=== PATIENT | male | born 1980 | race African-American/Black ===

== ENCOUNTER 2020-06-10 15:34 | Emergency (ER) | payer OTHER ==
[2020-06-10] MEDS ORDERED: ONDANSETRON HCL INJ/PF 4 MG/2 ML SDV IV ONE (16:02)
[2020-06-10] MEDS ORDERED: MAG HYDROX/AL HYDROX/SIMETH SUSP 30 ML UDCUP PO ONE (16:02)
[2020-06-10] MEDS ORDERED: LIDOCAINE 2% VISCOUS SOLN 15 ML UDCUP PO ONE (16:02)
[2020-06-10] MEDS ORDERED: NORMAL SALINE 1000 ML 1,000 ML IV ONE (16:02)
--- NOTE | 2020-06-10 16:04 | ER Document Report ---
ED Medical Screen (RME) - General Chief Complaint: Vomiting Stated Complaint: HEARTBURN,VOMITING Time Seen by Provider: 06/10/20 15:58 Mode of Arrival: Ambulatory Information source: Patient Notes: Patient presents complaining of nausea vomiting for the past 6 days with epigastric discomfort. Patient denies any fever or diarrhea. Patient denies any cough or cold symptoms. Patient was acknowledged to heavy drinking recently. Patient does report a history of diabetes I have greeted and performed a rapid initial assessment of this patient. A comprehensive ED assessment and evaluation of the patient, analysis of test results and completion of the medical decision making process will be conducted by additional ED providers. Physical Exam - Vital signs Vitals: Temp Pulse Resp BP Pulse Ox 98.2 F 118 H 16 101/84 97 06/10/20 15:54 06/10/20 15:54 06/10/20 15:54 06/10/20 15:54 06/10/20 15:54 - Respiratory Respiratory status: No respiratory distress Breath sounds: Normal - Cardiovascular Rhythm: Tachycardia Heart sounds: S1 appreciated, S2 appreciated - Abdominal Tenderness: Tender - Gastric Course - Vital Signs Vital signs: Temp Pulse Resp BP Pulse Ox 98.2 F 118 H 16 101/84 97 06/10/20 15:54 06/10/20 15:54 06/10/20 15:54 06/10/20 15:54 06/10/20 15:54
[2020-06-10 16:31] LABS: ABSOLUTE LYMPHOCYTES (AUTO) 1.7 10^3/uL (0.5-4.7); ABSOLUTE MONOCYTES (AUTO) 0.9 10^3/uL (0.1-1.4); ABSOLUTE NEUT (AUTO) 11.5 10^3/uL (1.7-8.2); BASOPHILS % (AUTO) 0.2 % (0-2); EOSINOPHILS % (AUTO) 0.3 % (0-6); HEMATOCRIT 48.4 % (37.9-51.0); LYMPHOCYTES % (AUTO) 11.8 % (13-45); MEAN CORPUSCULAR HEMOGLOBIN 31.5 pg (27.0-33.4); MEAN CORPUSCULAR HGB CONC 35.2 g/dL (32.0-36.0); MEAN CORPUSCULAR VOLUME 90 fl (80-97); MONOCYTES % (AUTO) 6.7 % (3-13); PLATELET COUNT 242 10^3/uL (150-450); RED BLOOD COUNT 5.39 10^6/uL (4.35-5.55); RED CELL DISTRIBUTION WIDTH 13.3 % (11.5-14.0); TOTAL CELLS COUNTED % (AUTO) 100 %; WHITE BLOOD COUNT 14.2 10^3/uL (4.0-10.5)
[2020-06-10 16:49] LABS: ALKALINE PHOSPHATASE 65 U/L (38-126); ANION GAP 8 (5-19); ASPARTATE AMINO TRANSFERASE 24 U/L (17-59); BILIRUBIN,DIRECT 0.2 mg/dL (0.0-0.4); BILIRUBIN,TOTAL 1.1 mg/dL (0.2-1.3); BLOOD UREA NITROGEN 16 mg/dL (7-20); CALCIUM 9.2 mg/dL (8.4-10.2); CARBON DIOXIDE 31 mmol/L (22-30); CHLORIDE 92 mmol/L (98-107); GLUCOSE 126 mg/dL (75-110); POTASSIUM 3.6 mmol/L (3.6-5.0)
--- NOTE | 2020-06-10 19:06 | EKG REPORT ---
SEVERITY:- OTHERWISE NORMAL ECG - SINUS TACHYCARDIA : Confirmed by: Rayne Ni MD 10-Jun-2020 19:05:51
[2020-06-10 19:57] VITALS: BP 130/81
--- NOTE | 2020-06-10 20:28 | ER Document Report ---
ED General - General Chief Complaint: Epigastric Pain Stated Complaint: HEARTBURN,VOMITING Time Seen by Provider: 06/10/20 15:58 Mode of Arrival: Ambulatory - [facility] Notes: Patient is a 40-year-old male with a past medical history of diabetes on insulin who presents with epigastric pain and vomiting. Patient states he has been drinking heavily since moving here from [place]. He states he drinks 1/5 of vodka daily. Patient states that he began having epigastric pain and burning on . He states he has had some vomiting. Patient states he has quit drinking. He denies any current abdominal pain, fevers, chills, diarrhea, or constipation. Here with his family member. - Related Data Allergies/Adverse Reactions: No Known Allergies Allergy (Verified 06/10/20 16:36) Past Medical History - General Information source: Patient - Social History Smoking Status: Current Every Day Smoker Frequency of alcohol use: Heavy Family History: Reviewed & Not Pertinent Patient has homicidal ideation: No Review of Systems - Review of Systems Notes: CONSTITUTIONAL: No fever, fatigue or weight loss. SKIN: No rash. HENT: No congestion, ear pain, or sore throat. EYES: No recent vision problems or eye pain. CARDIOVASCULAR: No chest pain or edema. RESPIRATORY: No cough, shortness of breath, congestion, or wheezing. GASTROINTESTINAL: Positive for vomiting and epigastric burning. GENITOURINARY: No dysuria. MUSCULOSKELETAL: No joint pain or swelling. LYMPHATIC: No swollen glands. NEUROLOGIC: No seizures. No headache, focal weakness or sensory changes. HEMATOLOGIC: No unusual bruising or bleeding. PSYCHIATRIC: No depression or anxiety. Physical Exam - Vital signs Vitals: Temp Pulse Resp BP Pulse Ox 98.2 F 118 H 16 101/84 97 06/10/20 15:54 06/10/20 15:54 06/10/20 15:54 06/10/20 15:54 06/10/20 15:54 - General General appearance: Appears well Notes: VITAL SIGNS: Within normal limits. GENERAL: No acute distress, non-toxic appearance. HEAD: Normal with no signs of head trauma. EYES: EOMI, conjunctiva normal, no discharge. EARS: Hearing grossly intact. NECK: Normal range of motion, no tenderness, supple, no lymphadenopathy, No adenopathy, no JVD. CHEST: Clear breath sounds bilaterally. No wheezes, rales, or rhonchi. CARDIAC: Regular rate and rhythm. S1 and S2, without murmurs, gallops, or r ubs. VASCULAR: No Edema. Peripheral pulses normal and equal in all extremities. ABDOMEN: Normal and soft with no tenderness, no masses or pulsatile masses. GENITOURINARY: Normal, No tenderness MUSCULOSKELETAL: Good range of motion of all major joints. Extremities without clubbing, cyanosis or edema. NEUROLOGICAL: Alert and oriented x 3. No focal sensory or strength deficits. Speech normal. Follows commands appropriately. PSYCHIATRIC: Normal Affect, judgement and mood. SKIN: Normal appearance with no rashes or lesions. Course - Re-evaluation Re-evalutation: 06/10/20 20:34 Patient appears well on exam. He is ambulating in the room. He states he feels much better after GI cocktail and fluids. His lab work did show some dehydration. His lipase is not elevated. He has no abdominal tenderness on my exam. He states he feels much better. Likely patient could have sustained some gastritis from the heavy drinking. I instructed him on healthy diet and avoiding drinking. I did discuss differential of epigastric burning with him including cardiac issues. Patient had an EKG but no troponin. He states he wo uld like to go home and does not want a troponin. He states he feels much better and thinks this is likely GI discomfort. I believe this is reasonable. Patient was given a number for a PCP to follow-up with as he is new to the area. He was instructed on stopping drinking. Patient is very agreeable to the plan and will return for any return of symptoms. - Vital Signs Vital signs: Temp Pulse Resp BP Pulse Ox 98.2 F 97 18 130/81 H 95 06/10/20 19:56 06/10/20 19:56 06/10/20 19:56 06/10/20 19:56 06/10/20 19:56 - Laboratory Result Diagrams: 06/10/20 16:08 06/10/20 16:08 Laboratory results interpreted by me: 06/10/20 06/10/20 16:08 16:08 WBC 14.2 H Lymph % (Auto) 11.8 L Absolute Neuts (auto) 11.5 H Seg Neutrophils % 81.0 H Sodium 131.3 L Chloride 92 L Carbon Dioxide 31 H Glucose 126 H Lipase 22.9 L - EKG Interpretation by Me EKG shows normal: Sinus rhythm Rate: Tachycardia When compared to previous EKG there are: No significant change Additional EKG results interpreted by me: 06/10/20 20:36 Sinus tachycardia at a rate of 106. QTc 463. No acute ST changes. No previous EKG available for comparison. Discharge - Discharge Clinical Impression: Epigastric pain Vomiting Qualifiers: Vomiting type: unspecified Vomiting Intractability: non-intractable Nausea presence: without nausea Qualified Code(s): R11.11 - Vomiting without nausea Condition: Stable Disposition: HOME, SELF-CARE Instructions: Vomiting ([facility]), Evaluation of Upper Abdominal Pain ([facility]) Additional Instructions: Please follow-up with your family doctor provided. Eat a bland diet until you feel better. Please return to the ER for any fevers, return of abdominal pain, vomiting, any other concerning symptoms. Prescriptions: Ondansetron [Zofran Odt 4 mg Tablet] 4 mg PO Q4HP PRN 5 Days #10 tab.rapdis PRN Reason: Famotidine [Pepcid 20 mg Tablet] 20 mg PO DAILY #12 tablet Referrals: SRAA JOHNSON MD [COMMUNITY BASED STAFF] - Follow up as needed
== END 2020-06-10 20:43 | disposition home or self-care (01) ==
LOC: ER 15:34
DX: R10.13 Epigastric pain (principal); R11.11 Vomiting without nausea; E86.0 Dehydration; R00.0 Tachycardia, unspecified; F17.200 Nicotine dependence, unspecified, uncomplicated; E11.9 Type 2 diabetes mellitus without complications; Z79.4 Long term (current) use of insulin
CPT/HCPCS: 93005; 99284; 96361; 96374; 36415; 83690; 85025; 80053; 93010; J3490; J2405; J7030